=== PATIENT | female | born 1960 | race Caucasian/White ===

== ENCOUNTER 2021-04-22 16:05 | Outpatient (CLI) | payer OTHER, SELFPAY ==
--- NOTE | ~2021-04-22 | MM_ITS ---
EXAMINATION: MM screening shavon BI w kami HISTORY: Screening mammogram TECHNIQUE: Craniocaudal and mediolateral oblique 3-D tomosynthesis images were obtained and synthetic 2-D images were generated. CAD analysis was submitted and interpreted. COMPARISON: 07/23/2019, 06/05/2018, 10/12/2016 bilateral digital screening mammogram examinations BREAST PARENCHYMAL COMPOSITION: The breasts are heterogeneously dense, which may obscure small masses . FINDINGS: There is no evidence of suspicious mass, calcification, or architectural distortion to sugg est malignancy in either breast. There has been no suspicious interval change. IMPRESSION: 1. No mammographic evidence of malignancy. 2. Recommend routine screening mammography in one year. BI-RADS Category 1: Negative Reviewed, dictated and finalized at location A.
== END 2021-04-22 16:06 | disposition home or self-care (01) ==
PROVIDERS: PCP Internal Medicine; Visit Provider Obstetrics & Gynecology
DX: Z12.31 Encounter for screening mammogram for malignant neoplasm of breast (principal)
CPT/HCPCS: 77063; 77067

== ENCOUNTER 2023-01-16 07:31 | Outpatient (CLI) | payer OTHER, SELFPAY ==
--- NOTE | ~2023-01-16 | MM_ITS ---
EXAMINATION: MM screening shavon BI w kami HISTORY: Screening mammogram TECHNIQUE: Craniocaudal and mediolateral oblique 3-D tomosynthesis images were obtained and synthetic 2-D images were generated. CAD analysis was submitted and interpreted. COMPARISON: 04/22/2021, 07/23/2019, 06/05/2018 bilateral screening mammogram examinations BREAST PARENCHYMAL COMPOSITION: The breasts are heterogeneously dense, which may obscure small masses . FINDINGS: There is no evidence of suspicious mass, calcification, or architectural distortion to sugg est malignancy in either breast. There has been no suspicious interval change. IMPRESSION: 1. No mammographic evidence of malignancy. 2. Recommend routine screening mammography in one year. BI-RADS Category 1: Negative Reviewed, dictated and finalized at location A. [employer]
--- NOTE | ~2023-01-16 | DEXA_ITS ---
Bone Density Report Name: DANISH ZIMMERMAN Age: 62 Sex: Female Ethnicity: White Date of : 1960 Indication: postmenopausal; screening for osteoporosis; Referring Provider: , SANDRA William Study: Bone densitometry was performed. Exam Date: January 16, 2023 Accession number: [id number] Bone Density: Region BMD T-score Z-score Classification AP Spine(L1, L2, L3) 1.007 -0.1 1.6 Normal Femoral Neck (Left) 0.731 -1.1 0.4 Osteopenia Total Hip (Left) 0.938 0.0 1.2 Normal Femoral Neck (Right) 0.675 -1.6 -0.1 Osteopenia Total Hip (Right) 0.858 -0.7 0.5 Normal Total Hip Mean 0.898 -0.4 0.9 Normal World Health Organization criteria for BMD impression classify patients as: Normal (T-score at or above -1.0), Osteopenia (T-score between -1.0 and -2.5), or Osteoporosis (T-score at or below -2.5). 10-year Fracture Risk(1): Major Osteoporotic Fracture 8.3% Hip Fracture 0.9% Reported Risk Factors: [place] (), Neck BMD=0.675, BMI=22.3 (1) FRAX(R) Version 3.08. Fracture probability calculated for an untreated patient. Fracture probability may be lower if the patient has received treatment. Previous Exams: Region Exam Age BMD T-score BMD Change BMD Change Date g/cm2 vs Baseline vs Previous AP Spine (L1-L3) 01/16/2023 62 1.007 -0.1 -0.071 (-6.6%) -0.071 (-6.6%) 12/17/2016 56 1.078 0.5 Total Hip(Left) 01/16/2023 62 0.938 0.0 -0.025 (-2.6%) -0.025 (-2.6%) 12/17/2016 56 0.963 0.2 Total Hip(Right) 01/16/2023 62 0.858 -0.7 -0.031 (-3.4%) -0.031 (-3.4%) 12/17/2016 56 0.888 -0.4 *Denotes significance at 95% confidence level, LSC for AP Spine = 0.022 g/cm2, LSC for Total Hip = 0.027 g/cm2 Clinical Information Provided by Patient: Patient maximum height was 64.25 Menopause Age: 51 Drinks caffeinated beverages Onset of menses at age 11 Number of children 2 Impression: The patient has low bone mass, based on the Right Femoral Neck T-score. The patient has an estimated ten-year risk of hip fracture of 0.9% and an estimated ten-year risk of major fracture of 8.3%, based on the WHO FRAX algorithm. The BMD for the AP Spine (L1-L3) decreased, changing by -6.6% since the last DXA exam. The BMD for the Total Hip(Right) decreased, changing by -3.4% since the last DXA exam. Discussion: BONE DENSITY IS LOW AT ONE OR MORE SKELETAL SITES. This patient's lowest T-score is low at one or more skeletal sites. It meet
== END 2023-01-16 07:32 | disposition home or self-care (01) ==
PROVIDERS: PCP Internal Medicine; Visit Provider Internal Medicine
DX: Z12.31 Encounter for screening mammogram for malignant neoplasm of breast (principal); Z78.0 Asymptomatic menopausal state; M85.88 Other specified disorders of bone density and structure, other site
CPT/HCPCS: 77063; 77067; 77080

== ENCOUNTER 2024-04-09 16:20 | Outpatient (CLI) | payer OTHER, SELFPAY ==
--- NOTE | ~2024-04-09 | MM_ITS ---
EXAMINATION: MM screening shavon BI w kami HISTORY: Screening mammogram TECHNIQUE: Craniocaudal and mediolateral oblique 3-D tomosynthesis images were obtained and synthetic 2-D images were generated. CAD analysis was submitted and interpreted. COMPARISON: January 16, 2023, April 22, 2021 bilateral screening mammogram examinations BREAST PARENCHYMAL COMPOSITION: The breasts are heterogeneously dense, which may obscure small masses . FINDINGS: There is no evidence of suspicious mass, calcification, or architectural distortion to sugg est malignancy in either breast. There has been no suspicious interval change. IMPRESSION: 1. No mammographic evidence of malignancy. 2. Recommend routine screening mammography in one year. BI-RADS Category 1: Negative Reviewed, dictated and finalized at location A.
== END 2024-04-09 16:21 | disposition home or self-care (01) ==
PROVIDERS: PCP Internal Medicine; Visit Provider Obstetrics & Gynecology
DX: Z12.31 Encounter for screening mammogram for malignant neoplasm of breast (principal)
CPT/HCPCS: 77063; 77067

== ENCOUNTER 2025-10-22 08:24 | Outpatient (CLI) | payer MEDICARE, SELFPAY ==
--- OUTSIDE RECORDS SUMMARY | 2025-09-30 09:19 | XMS_ITS | Continuity of Care Document ---
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 Name Role Phone Yong Calloway MD Unavailable Unavailable Allergies, Adverse Reactions, Alerts Substance Reaction Status Criticality codeine Active No Information Sulfa (Sulfonamide Antibiotics) Active No Information Medications Medication Instructions Dosage Effective Dates (start - stop) Status Comments Levothyroxine Sodium 75 MCG Oral Tablet Take 1 tablet by mouth once daily - Active fluticasone propionate 50 mcg/actuation nasal spray,suspension inhale 1 spray by intranasal route every day in each nostril 50 MCG - Active Claritin 10 mg tablet take 1 tablet by o ral route every day as needed 10 MG - Active Procedures Procedure Date Pt inelig neg scrn depres FALL RISK ASSESSMENT DOC'D PRES/ABSN URINE INCON ASSESS MED LIST DOCD IN RCRD OFFICE [id number] INIT PREVENT PHYS EXAM; LIMITED TO NEW B ENEFICIARY BODY MASS INDEX DOCD SYST BP >= 140 MM HG6 IT DIAST BP >= 90 MM HG ELECTROCARDIOGRAM ECG WITH 12 LEADS INTE RP AND RPT ROUTINE VENIPUNCTURE IL CBC, INC PLATELETS AND DIFFERENTIAL COMPREHEN METABOLIC PANEL CMP LIPID PANEL RBC SED RATE, AUTOMATED THYROID STIMULATION HORMONE(TSH) 2024 Pt inelig neg scrn depres FALL RISK ASSESSMENT DOC'D PRES/ABSN URINE INCON ASSESS PREVENTATIVE-EST: 65 & OVER BODY MASS INDEX DOCD SYST BP >= 140 MM HG6 IT DIAST BP 80-89 MM HG GENERAL HEALTH PANEL LIPID PANEL RBC SED RATE, AUTOMATED ROUTINE VENIPUNCTURE IL RBC SED RATE, AUTOMATED THYROID STIMULATION HORMONE(TSH) 2023 Pt inelig neg scrn depres IMMUN ADMIN (INC PERCUTANEOUS) SINGLE, F IRST INJ Pneumococcal Conjugate Vaccine (PCV20) A OFFICE [id number] BODY MASS INDEX DOCD SYST BP >= 140 MM HG6 IT DIAST BP 80-89 MM HG ROUTINE VENIPUNCTURE IL Pt inelig neg scrn depres FALL RISK ASSESSMENT DOC'D PRES/ABSN URINE INCON ASSESS PREVENTATIVE-EST: 65 & OVER BODY MASS INDEX DOCD SYST BP >= 140 MM HG6 IT DIAST BP >= 90 MM HG ROUTINE VENIPUNCTURE IL GENERAL HEALTH PANEL LIPID PANEL RBC SED RATE, AUTOMATED OFFICE [id number] BODY MASS INDEX DOCD SYST BP >= 140 MM HG6 IT DIAST BP >= 90 MM HG RBC SED RATE, AUTOMATED THYROID STIMULATION HORMONE(TSH) 2022 ROUTINE VENIPUNCTURE IL Pt inelig neg scrn depres PREVENTATIVE-EST: 40-64 BODY MASS INDEX DOCD SYST BP >= 140 MM HG6 IT DIAST BP >= 90 MM HG GENERAL HEALTH PANEL LIPID PANEL ROUTINE VENIPUNCTURE RBC SED RATE, AUTOMATED Pt inelig neg scrn depres OFFICE [id number] BODY MASS INDEX DOCD SYST BP GE 130 - 139MM HG DIAST BP >= 90 MM HG RBC SED RATE, AUTOMATED THYROID STIMULATION HORMONE(TSH) 2021 ROUTINE VENIPUNCTURE FREE T4 (FT4) OFFICE [id number] BODY MASS INDEX DOCD SYST BP >= 140 MM HG6 IT DIAST BP >= 90 MM HG RBC SED RATE, AUTOMATED ROUTINE VENIPUNCTURE OFFICE [id number] BODY MASS INDEX DOCD SYST BP >= 140 MM HG6 IT DIAST BP >= 90 MM HG RBC SED RATE, AUTOMATED THYROID STIMULATION HORMONE(TSH) 2020 ROUTINE VENIPUNCTURE FREE T4 (FT4) OFFICE [id number] GENERAL HEALTH PANEL RBC SED RATE, AUTOMATED COVID-19, Amplified Probe Technique URINALYSIS, DIPSTICK (UA) - Office Lab O ROUTINE VENIPUNCTURE FREE T4 (FT4) PREVENTATIVE-EST: 40-64 BODY MASS INDEX DOCD SYST BP LT 130 MM HG DIAST BP < 80 MM HG Pt inelig neg scrn depres FALL RISK ASSESSMENT DOC'D PRES/ABSN URINE INCON ASSESS FREE T4 (FT4) GENERAL HEALTH PANEL LIPID PANEL ROUTINE VENIPUNCTURE IMMUN ADMIN (INC PERCUTANEOUS) SINGLE, F IRST INJ FLU VAC NO PRSV 4 LAURA, 0.5mL DOSAGE Pt inelig neg scrn depres PREVENTATIVE-EST: 4064 BODY MASS INDEX DOCD SYST BP GE 130 - 139MM HG DIAST BP 80-89 MM HG GENERAL HEALTH PANEL LIPID PANEL ROUTINE VENIPUNCTURE Pt inelig neg scrn depres OFFICE [id number] BODY MASS INDEX DOCD SYST BP >= 140 MM HG6 IT DIAST BP >= 90 MM HG THYROID STIMULATION HORMONE(TSH) 2019 ROUTINE VENIPUNCTURE IMMUN ADMIN (INC PERCUTANEOUS) SINGLE, F IRST INJ FLU VAC NO PRSV 4 LAURA, 0.5mL DOSAGE Pt inelig neg scrn depres PREVENTATIVE-EST: 40-64 BODY MASS INDEX DOCD SYST BP >= 140 MM HG6 IT DIAST BP >= 90 MM HG GENERAL HEALTH PANEL LIPID PANEL ROUTINE VENIPUNCTURE Advance Directives Directive Yes / No Effective Date File Name Other Directive No N/A N/A WARNING:The information contained in this section is historical and is provided for information only and does not constitute a legal document or any assurance that the information is still accurate. Please verify the information with the srinivasan of the legal document before using it for clinical purposes. Encounters Encounter Description Practice Location Reason(s) For Visit Diagnoses Date Provider Providers Copied on Encounter OFFICE [id number] PANDED [facility], [address], [place], [place], [address] , [place] tel: [phone] [facility] [place] preventive (chief complaint)PX (chief complaint) Encntr for general adult medical exam w/o abnormal findingsPolymyalg ia rheumaticaHypothy roidism, unspecified typeWhite coat syndrome without hypertension [address] [place]. [address] [place] [address], [id number] , [place]. tel: [phone] Referring Provider: [place], [address] . tel:[phone] [facility], [address], [place], [place], [address] , [place] tel: [phone] [facility] Essential (primary) hypertensionHyper thyroidismPolymya lgia rheumatica [address] [place]. [place], [address] , [place]. tel: [phone] Referring Provider: [place], [address] . tel:[phone] [facility], [address], [place], [place], [address] , [place] tel: [phone] [facility] No Information 5 Shaye Brandon. [address] [facility], [place] [address], [place], [place], [address] , [place]. tel: [phone] Referring Provider: [place], [address] . tel:[phone] [facility], [address], [place], [place], [address] , [place] tel: [phone] [facility] No Information 5 [place]. [address] [place], [address] , [place]. tel: [phone] PREVENTATIVE -EST: 65 & OVER [facility], [address], [place], [place], [address] , tel: [phone] [facility] PX (chief complaint) Encounter for annual general medical examination without abnormal findings in adultHypothyroidi sm, unspecified type 4 [place]. [address] [place], [address] , [place]. tel: [phone] Referring Provider: Yong Calloway, [address] [place], [address] . tel:[phone] [facility], [address], [place], [place], [address] , [place] tel: [phone] [facility] No Information 4 Shaye Vasquez [address] [place] [address], [id number] , [place]. tel: [phone] Referring Provider: [place], [address] . tel:[phone] [facility], [address], [place], [place], [address] , [place] tel: [phone] [facility] Essential (primary) hypertensionHyper thyroidismPolymya lgia rheumaticaEncount er for annual general medical examination without abnormal findings in adult Jul-3 4 [place]. [address] [place], [address] , [place]. tel: [phone] Referring Provider: [place], [address] . tel:[phone] [facility], [address], [place], [place], [address] , tel: [phone] [facility] No Information 4 Shaye Vasquez [address], [address] , . tel: [phone] Referring Provider: [place], [address] . tel:[phone] OFFICE BQVHA-JXS-US PANDED [facility], [address], [place], [place], [address] , [place] tel: [phone] [facility] chronic conditons (chief complaint) Polymyalgia rheumaticaHypothy roidism, unspecified typeWhite coat syndrome without hypertensionBody mass index [BMI] 22.0-22.9, adult Apr- 4 [place]. [place], [address] , [place]. tel: [phone] Referring Provider: [place], [address] . tel:[phone] PREVENTATIVE -EST: 65 & OVER [facility], [address], [place], [place], [address] , [place] tel: [phone] [facility] px (chief complaint) Encounter for general adult medical examination without abnormal findingsPolymyalg ia rheumaticaHypothy roidism, unspecified typeColon cancer screening Jul- 3 [place]. [place], [address] , [place]. tel: [phone] Referring Provider: Yong Calloway, [address] [place], [address] . tel:[phone] [facility], [address], [place], [place], [address] , [place] tel: [phone] [facility] HyperthyroidismPo lymyalgia rheumaticaEssenti al (primary) hypertensionScree deepika for lipid disorders Jul-2 3 [place]. [place], [address] , [place]. tel: [phone] Referring Provider: [place], [address] . tel:[phone] [facility], [address], [place], [place], [address] , tel: [phone] [facility] No Information Sep-2 3 Shaye Brandon. [address], [id number] , . tel: [phone] Referring Provider: [place], [address] . tel:[phone] OFFICE BUKUA-XBL-VJ TAILED [facility], [address], [place], [place], [address] , tel: [phone] [facility] chronic conditonss (chief complaint) Polymyalgia rheumaticaHyperth yroidismBody mass index [BMI] 21.0-21.9, adultSensorineura l hearing loss, bilateralSkin lesionOsteopenia, unspecified location Jan-2 3 [place]. [address] [place], [address] , [place]. tel: [phone] Referring Provider: [place], [address] . tel:[phone] [facility], [address], [place], [place], [address] , [place] tel: [phone] [facility] No Information 3 Shaye Brandon. [address], [id number] , . tel: [phone] Referring Provider: [place], [address] . tel:[phone] [facility] [place], [address], [place], [place], [address] , [place] tel: [phone] [facility] Polymyalgia rheumaticaHyperth yroidism Jan-2 3 [place]. [address] [place], [address] , [place]. tel: [phone] Referring Provider: [place], [address] . tel:[phone] PREVENTATIVE -EST: 40-64 [facility], [address], [place], [place], [address] , tel: [phone] [facility] px (chief complaint) Encounter for general adult medical examination without abnormal findingsPMR (polymyalgia rheumatica)Hypoth yroidism, unspecified typeBody mass index [BMI] 21.0-21.9, adultAsymptomatic menopausal state 2 [place]. [place], [address] , . tel: [phone] Referring Provider: [place], [address] . tel:[phone] [facility], [address], [place], [place], [address] , tel: [phone] [facility] Essential hypertensionHypot hyroidism, unspecified typeScreening for lipoid disordersPMR (polymyalgia rheumatica) 2 [place]. [place], [address] , . tel: [phone] Referring Provider: [place], [address] . tel:[phone] OFFICE [id number]-RXU-WU [facility], [address], [place], [place], [address] , tel: [phone] [facility] chronic conditions (chief complaint) Body mass index [BMI] 22.0-22.9, adultPMR (polymyalgia rheumatica)Hypoth yroidism, unspecified type 2 [place]. [place], [address] , [place]. tel: [phone] Referring Provider: [place], [address] . tel:[phone] OFFICE QIXRD-EFH-ZV [facility], [address], [place], [place], [address] , tel: [phone] [facility] pmr (chief complaint) Body mass index [BMI] 21.0-21.9, adultPMR (polymyalgia rheumatica) [address] [place] [place], [address] , [place]. tel: [phone] Referring Provider: Yong Calloway, [place], [address] . [phone] [facility], [address], [place], [place], [address] , tel: [phone] [place] Swelling of joint of right knee 1 [place]. [place], [address] , [place]. tel: [phone] OFFICE BZUJC-DCC-AF TAILED [facility], [address], [place], [place], [address] , [place] tel: [phone] [facility] generalized pain (chief complaint) Body mass index [BMI] 22.0-22.9, adultHypothyroidi sm, unspecified typeGeneralized painSwelling of knee joint, right 1 [place]. [place], [address] , [place]. tel: [phone] Referring Provider: [place], [address] . tel:[phone] OFFICE GORTK-BXD-OV PANDED [facility], [address], [place], [place], [address] , tel: [phone] [facility] acute problem (chief complaint) Malaise [address] [place] [place], [address] , [place]. tel: [phone] Referring Provider: [place], [address] . [phone] [employer] [facility] [facility], [address], [place], [place], [address] , tel: [phone] [facility] Fatigue, unspecified typeTemperature elevated 1 [place]. [place], [address] , [place]. tel: [phone] PREVENTATIVE -EST: 40-64 [facility], [address], [place], [place], [address] , tel: [phone] [place] px (chief complaint) Encounter for general adult medical examination without abnormal findingsHypothyro idism, unspecified typeBody mass index (BMI) 21.0-21.9, adult Sep-0 1 [place]. [place], [address] , . tel: [phone] Referring Provider: [place], [address] . tel:[phone] [facility], [address], [place], [place], [address] , tel: [phone] [place] Elevated blood pressure readingElevated TSHEssential hypertensionScree deepika for lipoid disordersHypothyr oidism, unspecified type Sep-0 1 [place] [place], [address] , . tel: [phone] Referring Provider: [place], [address] . tel:[phone] [facility], [address], [place], [place], [address] , tel: [phone] [facility] No Information Sep-0 1 [place] [place], [address] , . tel: [phone] PREVENTATIVE -EST: 40-64 [facility], [address], [place], [place], [address] , tel: [phone] [place] px (chief complaint) Encounter for general adult medical examination without abnormal findingsHypothyro idism, unspecified typeWhite coat syndrome without diagnosis of hypertension 0 [place]. [place], [address] , . tel: [phone] Referring Provider: [place], [address] . tel:[phone] OFFICE MELLR-ETU-QQ PANDED [facility], [address], [place], [place], [address] , tel: [phone] [place] Thyroid disorder f/u (chief complaint) Hypothyroidism, unspecified typeWhite coat syndrome without diagnosis of hypertension 0 [place]. [place], [address] , . tel: [phone] Referring Provider: Yong Calloway, [place], [address] . tel:[phone] [facility], [address], [place], [place], [address] , tel: [phone] [place] No Information 9 [place]. [place], [address] , . tel: [phone] Referring Provider: [place], [address] . tel:[phone] PREVENTATIVE -EST: 40-64 [facility], [address], [place], [place], [address] , tel: [phone] [facility] PX (chief complaint) Encounter for general adult medical examination without abnormal findingsHypothyro idism, unspecified typeWhite coat syndrome without diagnosis of hypertension 9 [place] [place], [address] , . tel: [phone] Referring Provider: [place], [address] . tel:[phone] [facility], [address], [place], [place], [address] , tel: [phone] [place] Essential hypertensionHypot hyroidism, unspecified typeScreening for lipoid disordersAdult general medical exam 9 [place] [place], [address] , . tel: [phone] Referring Provider: [place], [address] . tel:[phone] [facility], [address], [place], [place], [address] , tel: [phone] [place] Hypertension, unspecified typeLong term use of drug 8 [place]. [place], [address] , . tel: [phone] Referring Provider: Yong Calloway, [address] [place], [address] . tel:[phone] [facility], [address], [place], [place], [address] , tel: [phone] [place] Encounter for general adult medical examination without abnormal findingsHypothyro idism, unspecified typeElevated blood pressure readingElevated TSH 8 [place] [place], [address] , . tel: [phone] Referring Provider: Yong Calloway, [place], [address] . tel:[phone] [facility], [address], [place], [place], [address] , tel: [phone] [place] Pleurodynia [address] [place]. [place], [address] , . tel: [phone] [facility], [address], [place], [place], [address] , tel: [phone] [place] Chest pain, unspecified type 7 [place] [place], [address] , . tel: [phone] [facility], [address], [place], [place], [address] , tel: [phone] [place] Chest pain, unspecified type 3 0 7 [place] [place], [address] , . tel: [phone] [facility], [address], [place], [place], [address] , tel: [phone] [place] Encounter for general adult medical examination without abnormal findingsHypothyro idism, unspecified typeChest pain, unspecified typeOsteopenia 6 [place]. [address] [place], [address] , . [phone] Referring Provider: Yong Calloway, [address] [place], [address] . tel:[phone] Family History Family Member Type Diagnosis Age At Onset Father Problem (finding) Cardiovascular disease Nephew Problem (finding) hypertension Mother Problem (finding) Cancer, brain Immunizations Vaccine Date Status Comments Pneumococcal conjugate PCV20 administered Source: New Immunization Record Flublok, quadrivalent, preservative free, 0.5mL dosage refused Source: New Immuniza tion Record Pneumococcal conjugate PCV20 refused Source: New Immunization Record J&J COVID/Adenovirus Vaccine [id number] viral particles/0.5mL administered Note: [facility] ; Source: Source Unspecified Fluzone Quad, preservative free, split virus, 0.5mL dosage administered Source: New Immuniza tion Record Fluzone Quad, preservative free, split virus, 0.5mL dosage administered Source: New Immuniza tion Record Influenza, injectable, quadrivalent, preservative free, 3 yrs or older refused Source: New Immuniz ation Record Payers Payer name Insurance type Covered democrat ID Authoriza tion(s) [place]IC[place] [id number] [place] [id number] [employer] [place] CI [id number] [facility] [place] CI [id number] [facility] [place] CI [id number] [facility] CI [id number] [facility] [place] [id number] [place] [id number] [place] [id number] Social History Type Description Quantity Date Captured Comments Alcohol Use Details beer & wine Caffeine Use Details Unknown Tobacco Use Status Current non-smoker Smoking Status Never smoker Non-Smoking Tobacco Use Details : No Details Available : No Details Available Sex Female Vital Signs Date / Time: Height Weight BMI Pulse Rate Blood Pressure Temperature Respiratory Rate Body Surface Area Head Circumference Head Circ. Percentile Wt./Tim. Percentile BMI percentile Pulse Ox Inhaled Ox 3:39 PM 64.00 in 60.600 kg (133.60 lbs) 22.9 3 kg/m eter (2) 82 /min 175/92 mm[Hg] Chief Complaint And Reason For Visit From encounter dated '09/30/2025 15:19'. Medicare preventive (chief complaint). Description: A Health Risk Assessment has been performed andreviewed. Relevant history is positive for alcohol use. PX (chief complaint). Description: Chronic conditionspmr-- in remissionhypothyroidism-- controlled with medbp is ok at homedietexercise-- regularimmunizations-- recommended flu shotscreenings--- mammogram in september,d with colonosocpymood- oksleep-- okmemory-- fine Reason For Referral Reason For Referral No Information Plan Of Treatment Date Type Action Status Goal Dietary manageme nt education, guidance, and counseling completed Goal Dietary manageme nt education, guidance, and counseling completed Goal Dietary manageme nt education, guidance, and counseling completed Goal Dietary manageme nt education, guidance, and counseling completed Goal Dietary manageme nt education, guidance, and counseling completed Goal Dietary manageme nt education, guidance, and counseling completed Goal Dietary manageme nt education, guidance, and counseling completed Referral Ordered: EKG (ELECTROCARDIOGRAM) ordered Referral Ordered: [facility] -Gastroenterology (related to Encounter for annual general medical examination without abnormal findings in adult) ordered Referral Referred To: [facility] Ordered: Referrals: Gastroenterology. [facility]. Evaluation/diagnostic/treatment - Level 3 ordered Referral Ordered: Dewey Mujica MD -Gastroenterology (related to Colon cancer screening) ordered Referral Referred To: Dewey Mujica MD [address] [place], [phone] Ordered: Referrals: Gastroenterology. Dewey Mujica MD. Evaluation/diagnostic/treatment - Level 3 ordered Referral Ordered: Matthew Ureña MD -Otolaryngology (related to Sensorineural hearing loss, bilateral) ordered Referral Ordered: MD Quynh Sifuentes -Dermatology (related to Skin lesion) ordered Referral Referred To: MD Quynh Sifuentes [address] [place], [phone] Ordered: Referrals: Dermatology. MD Quynh Sifuentes. Evaluation/diagnostic/treatment - Level 3 ordered Referral Referred To: Matthew Ureña MD [address] [place], [phone] Ordered: Referrals: Otolaryngology. Matthew Ureña MD. Evaluation/diagnostic/treatment - Level 3 ordered Referral Ordered: DEXA of spine and hip ordered Referral Referred To: [facility] Ordered: Referrals: Orthopedic Surgery. [facility]. Evaluation/diagnostic/treatment - Level 3 ordered Referral Ordered: Marina Kendrick MD -Rheumatology (related to Generalized pain) ordered Referral Referred To: [facility] Rhe[facility]ology Dept Ordered: Referrals: Rheumatology. [facility]. Evaluation/diagnostic/treatment - Level 3 ordered Referral [place]: [place] [address] [place], [phone] Ordered: Referrals: Rheumatology. Marina Kendrick MD. Evaluation/diagnostic/treatment - Level 3 ordered Referral Referred To: [address] [place], [phone] Ordered: X-ray right knee, AP/lateral ordered Appointment Milena Nelson BOOKED Appointment Milena Nelson BOOKED History Of Present Illness Encounter Date Complaint History Of Prese nt Illness PX Chronic conditio nspmr-- in remissionhypothyroidism-- controlled with medbp is ok at homedietexercise-- regularimmunizations-- recommended flu shotscreenings--- mammogram in november, utd with colonosocpymood- oksleep-- okmemory-- fine Medicare preventive A Health Ris k Assessment has been performed and reviewed. Relevant history is positive for alcohol use. PX Chronic conditio nselevated bp-- fine at homehypothyroidism-- controlled on meddiet-- tryign to eat healthyexercise-- regularimmunizations-- declined fllu shotscreenings-- needs colonoscopymood-- anxious at timessleep-- okmemory-- fine chronic conditons hypothyrodism- - controlled on medpmr-- doing well off of medwhite coat-- good bp at home px Chronic conditio nshypothyrodism-- controlled on medpmr-- doing finediet-- goodexercise-- regularimmunizations-- recommended flu and prevnarscreenings-- getting colonoscopy resulstmood--okmemory-- fine chronic conditonss pmr-- doing f ine off medhypothyrodism-- controlled on medosteopenia-- no recent fractures px Chronic conditio nspmr-- doing wellhypothyrodsm-- controlled on meddiet-- healthyexercise-- regularimmunizations---recommend flu and covid boosterscreenings-- needs dexa, mammogram and fit testmood--ok chronic conditions pmr-- doing m uch betterhypothyroidsm-- controlled on med pmr The problem is i mproving. It occurs persistently. Context includes night-time. Relieving factors include Rx Meds. Associated symptoms include fatigue and nocturnal pain. Additional information: prednisone is helping generalized pain pain and malais e-- steroids helped, not sleeping as welldecreased flexibilitymeloxicam and tylenol do helpwas diagnosed with fibromyalgia i npasthypithyrodisme-- energty is low acute problem ; occur intermit tently fever up and downachy especially in jointsno urinary problemstrying to drink waterno coughno sob px chronic conditio nshypothyrdism-- controlled on meddiet-- alrightexercise-- regularscreening--utdimmunizations--utdmood-- fine px chronic conditio nseleveted blood pressure-- pressure is fine at home, she just nervoushypothyroduism-- on levothyroxine, energy level oksleep is alrightdiet-- eating okexercise-- trying to regularlyscreening-- needs mammogramimmunizations-- flu shot todaymood-- ok per pt Thyroid disorder f/u white cost syndrome-- perfect at home, machine has been checked , no symptomshypothyrodism-- doing well, no complaints PX hypothyroduism-- tsh normal, no energy problems, taking replacementwhitecoat htn---- ok at home, home monitor and my readings in office are the same, got dizzy on lisinoprilscreenigs-- needs mammogram, needs colonosocpy, utd with dexaneeds flu and shingrixregular exercisehealthy dietmood very goodsleep is ok overall Functional Status Date Functional Assessmen t No Information Instructions Date Instruction Additional Infor una recommend annual flu vaccineutd with screeningshealthy diet and exercisefollow up in 1 year Related to Encntr for general adult medical exam w/o abnormal findings will monitor esr Related to Poly myalgia rheumatica continue levothryxinemonitor tsh Related to Hypothyroidism, unspecified type continue to monitor at home Rela thee to White coat syndrome without hypertension Medication management recommend annual flu shotneeds colonoscopyhealthy diet and exercisefollow up in 1 year Related to Encounter for annual general medical examination without abnormal findings in adult continue medsmonitor tsh Related to Hypothyroidism, unspecified type Medication management continue to monitorcheck esr Rel ated to Polymyalgia rheumatica continue medscheck tsh Related t o Hypothyroidism, unspecified type continue to monitor at home Rela thee to White coat syndrome without hypertension Dietary management e ducation, guidance, and counseling Related to Body mass index (BMI) 22.0-22.9, adult Medication management recommend annual flu shot and pneumonia vaccineannual mammogramwill get colonoscopy resultshealthy diet and exercisefollow up in 6 months Related to Encounter for general adult medical examination without abnormal findings continue levothyroxine Related t o Hypothyroidism, unspecified type will continue to monitor Related to Polymyalgia rheumatica Medication management continue to exercise take calcium and vitamin d Related to Osteopenia, unspecified location continue levothyroxine Related t o Hyperthyroidism will send to ent Related to Sens orineural hearing loss, bilateral send to derm Related to Skin lesion call if symptoms return Related to Polymyalgia rheumatica Dietary management e ducation, guidance, and counseling Related to Body mass index (BMI) 21.0-21.9, adult Medication management recommend annual flu shot and covid boosterneeds dexa and mammogramhealthy diet and exercisefollow up in 6 months Related to Encounter for general adult medical examination without abnormal findings continue levothyroxine Related t o Hypothyroidism, unspecified type go to prednsione every other day Related to PMR (polymyalgia rheumatica) Dietary management e ducation, guidance, and counseling Related to Body mass index (BMI) 21.0-21.9, adult Medication management will check esrcontin ue prednisonewill call with labs results Related to PMR (polymyalgia rheumatica) continue levothyroxine Related t o Hypothyroidism, unspecified type Dietary management e ducation, guidance, and counseling Related to Body mass index (BMI) 22.0-22.9, adult Medication management will recheck esrcontinue prednis one Related to PMR (polymyalgia rheumatica) Medication management Dietary management e ducation, guidance, and counseling Related to Body mass index (BMI) 21.0-21.9, adult will start amitrypll inewill send to rheum Related to Generalized pain will get xraycontinue meloxicam Related to Swelling of knee joint, right check tsh Related to Hypot hyroidism, unspecified type Dietary management e ducation, guidance, and counseling Related to Body mass index (BMI) 22.0-22.9, adult Medication management unclear etiologywill check labs and go from there Related to Malaise Medication management annual flu shotwill do FIT test for colon cancer screeninghealthy diet and exercisefollow up in 1 year Related to Encounter for general adult medical examination without abnormal findings continue meds Related to Hypot hyroidism, unspecified type Medication management Dietary management e ducation, guidance, and counseling Related to Body mass index (BMI) 21.0-21.9, adult annual flu shotneeds mammogramcontinue healthy diet and exercisefollow up in 6 months Related to Encounter for general adult medical examination without abnormal findings checking tshcontinue levothyxrox ine Related to Hypothyroidism, unspecified type low salt diet contin ue to monitor bp athome Related to White coat syndrome without diagnosis of hypertension Medication management monitor blood pressu re at homecall if above 140/80 Related to White coat syndrome without diagnosis of hypertension continue replacemementcheck tsh Related to Hypothyroidism, unspecified type Medication management annual flu shotneeds shingrixneeds mammogramcontinue healthy diet and exercisefollow up in 6 months Related to Encounter for general adult medical examination without abnormal findings monitor bp at home Related to Wh ite coat syndrome without diagnosis of hypertension on replacementtsh normalcontinue meds Related to Hypothyroidism, unspecified type Medication management Assessments Type Assessment Date assessment Encntr for general adult medical exam w/o abnormal findings assessment Polymyalgia rheumatica assessment Hypothyroidism, unspecified type assessment White coat syndrome without hype rtension Mental Status Date Cognitive Assessment Orientation - [place] ed to time, place, person, situation. Patient Care Teams Name Effective Dates (start - stop) Status Members No Information
--- NOTE | ~2025-10-22 | MM_ITS ---
EXAMINATION: MM screening shavon BI w kami HISTORY: Screening. TECHNIQUE: Craniocaudal and mediolateral oblique 3-D tomosynthesis images were obtained and synthetic 2-D images were generated. CAD analysis was submitted and interpreted. COMPARISON: 2023, , and 2020. BREAST PARENCHYMAL COMPOSITION: Dense: The breast tissue is heterogeneously dense, which may obscure small masses. FINDINGS: No suspicious masses are seen. There are no suspicious calcifications. No unexplained architectural distortion is seen. There are no skin or nipple abnormalities identified. There is no adenopathy seen on the images submitted. IMPRESSION: No mammographic evidence to suggest malignancy is seen. The patient may return to screening mammography as per ACR guidelines. BI-RADS: 1 - Negative. Reviewed, dictated and finalized at location B. PREPARATION TEACHER
--- OUTSIDE RECORDS SUMMARY | 2025-10-22 08:34 | XMS_ITS | Encounter Summary ---
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 Historical Provider [facility] Final Result documented in this encounter Visit Diagnoses Not on filedocumented in this encounter Care Teams Jewel Inserter Relationship Specialty Start Date End Date Yong Calloway MD PCP - General Internal Medicine 11/02/21 documented as of this encounter
--- OUTSIDE RECORDS SUMMARY | 2025-10-22 08:34 | XMS_ITS | Clinical Summary ---
Author Organization [facility] Address [facility] [place] [address] Care Team Providers Care Employment Program Representative Name Role Phone Yong Calloway MD Primary Care Provider [phone] Allergies Active Allergy Reactions Criticality Noted Date Comments Codeine Itching Low 04/20/2023 Sulfa (Sulfonamide Antibiotics) Diarrhea Low 03/28 Medications levothyroxine (SYNTHROID) 75 mcg tablet Take 1 tablet (75 mcg total) by mouth daily 03/29/2023 Active Active Problems Problem Noted Date Diagnosed Date Tinnitus of both ears 04/20/2023 Mixed conductive and sensori neural hearing loss of right ear with restricted hearing of left ear 04/20/2023 Dysfunction of right eustachian tube 04/20/2023 Surgical History Surgery Date Site/Laterality Comments TUBAL LIGATION KNEE ARTHROSCOPY Medical History Medical History Date Comments Autoimmune disease Thyroid disease Family History Medical History Relation Name Comments No Known Problems Father No Known Problems Mother Relation Name Status Comments Father Mother Social History Tobacco Use Types Packs/Day Years Used Date Smoking Tobacco: Never Smokeless Tobacco: Never Tobacco Cessation:Counseling Given: Not Answered Personal Safety Answer Date Recorded Getting School Help Needed Not on file 01/26 Comments Unknown Sex and Gender Information Value Date Recorded Sex Assigned at Not on file Legal Sex Female 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 Gender Identity Not on file Sexual Orientation Not on file Last Filed Vital Signs Vital Sign Reading Time Taken Comments Blood Pressure - - Pulse - - Temperature - - Respiratory Rate 18 04/20/2023 3:46 PM CDT Oxygen Saturation - - Inhaled Oxygen Concentration - - Weight 57.6 kg (127 lb) 04/20/2023 3:46 PM CDT Height 162.6 cm (5' 4) 04/20/2023 3:46 PM CDT Body Mass Index 21.8 04/20/2023 3:46 PM CDT Plan of Treatment Health Maintenance Due Date Last Done Comments Breast Cancer Screening-Mammogram 1960 Colon Cancer Screening-Colonoscopy 1960 Depression Screening 1958 Fall Risk Assessment 1960 Hepatitis C Screening 1960 Osteoporosis Screening-Bone Density Scan 1958 DTaP/Tdap/Td Vaccine (1 - Tdap) 1969 Hepatitis B Screening 1976 Pneumococcal vaccine 65+ (1 of 1 - PCV) 2008 Zoster Vaccine (1 of 2) 2008 Well Visit 65+ 2023 Covid-19 Vaccine (2 - season) 07/28/202503/2021 Influenza Vaccine (#1) 2025 09/07/2020, [address] [place] [address] [place] [address] Care Teams Employment Program Representative Relationship Specialty Start Date End Date Nigerian, Yong Duarte MD PCP - General Internal Medicine 11/02/21
--- OUTSIDE RECORDS SUMMARY | 2025-10-22 08:34 | XMS_ITS | Encounter Summary ---
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 Historical Provider [facility] Final Result documented in this encounter Visit Diagnoses Not on filedocumented in this encounter Care Teams Banquet Prep Cook Relationship Specialty Start Date End Date Yong Calloway MD PCP - General Internal Medicine 11/02/21 documented as of this encounter
--- OUTSIDE RECORDS SUMMARY | 2025-10-22 08:34 | XMS_ITS | Encounter Summary ---
Author Organization [facility] Facility Care Team Providers Care Treasury Director Name Role Phone Yong Calloway MD Primary Care Provider [phone] Encounter Details Date Type Department Care Team (Latest Contact Info) Description 05/05/2017 Orders Only [facility] CLINCONV ProviderChiqui MD [address] [place] [address] [phone] Social History Tobacco Use Types Packs/Day Years Used Date Smoking Tobacco: Never Assessed Comments Unknown Sex and Gender Information Value Date Recorded Sex Assigned at Not on file Legal Sex Female 9:10 PM KAIAKO KOHANGA REO Gender Identity Not on file Sexual Orientation Not on file documented as of this encounter Plan of Treatment Not on file documented as of this encounter Procedures Procedure Name Priority Date/Time Associated Diagnosis Comments CARDIOLOGY REPORT 05/04/2017 12: 00 AM CDT documented in this encounter Results * CARDIOLOGY REPORT (05/04/2017 12:00 AM CDT) Anatomical Region Laterality Modality Other Narrative 05/04/2017 12:00 AM CDT Ordered by an unspecified provider. Historical Provider [facility] Final Result documented in this encounter Visit Diagnoses Not on filedocumented in this encounter Care Teams Treasury Director Relationship Specialty Start Date End Date Yong Calloway MD PCP - General Internal Medicine 11/02/21 documented as of this encounter
--- OUTSIDE RECORDS SUMMARY | 2025-10-22 08:34 | XMS_ITS | Clinical Summary ---
Author Organization [facility] Address [facility] [place] [address] Care Team Providers Care Corrosion Control Engineer Name Role Phone Yong Calloway MD Primary Care Provider [phone] Social History Tobacco Use Types Packs/Day Years Used Date Smoking Tobacco: Never Assessed Comments Unknown Sex and Gender Information Value Date Recorded Sex Assigned at Not on file Legal Sex Female 1:12 PM TAX ASSOCIATE Gender Identity Not on file Sexual Orientation Not on file Plan of Treatment Health Maintenance Due Date Last Done Comments Colorectal Cancer Screening Colonoscopy (10 Years) 1958 Hepatitis C 1976 DTaP, Tdap and Td Vaccines ( 1 - Tdap) 1977 Mammogram Screening 1998 Pneumococcal Vaccine: 50+ Years (1 of 1 - PCV) 2008 Zoster Vaccines (1 of 2) 2008 Dexa Scan (General) 2023 PHQ-2 (Physician [place]) 11/27/2024 COVID-19 Vaccine (2 - 2024-2 6 season) 2025 01/29/2021 Influenza Adult (#1) 2025 09/07/2020, 09/18/2019 RSV Immunization or 60+ Years (1 - 1-dose 75+ series) 2033 Hepatitis A Vaccines Aged Out No long er eligible based on patient's age to complete this topic Meningococcal B Vaccine Aged Out No l onger eligible based on patient's age to complete this topic Meningococcal Vaccine Aged Out No isabela becca eligible based on patient's age to complete this topic RSV Immunizations Under 20 Months Aged Out No longer eligible b ased on patient's age to complete this topic Insurance [employer] [place] Care Teams Corrosion Control Engineer Relationship Specialty Start Date End Date Yong Calloway MD [address] [place] [address] PCP - General INTERNAL MEDICINE 01/05/24
--- OUTSIDE RECORDS SUMMARY | 2025-10-22 08:34 | XMS_ITS | Encounter Summary ---
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 Historical Provider [facility] Final Result documented in this encounter Visit Diagnoses Not on filedocumented in this encounter Care Teams Wire Bound Box Machine Operator Relationship Specialty Start Date End Date Yong Calloway MD PCP - General Internal Medicine 11/02/21 documented as of this encounter
--- OUTSIDE RECORDS SUMMARY | 2025-10-22 08:34 | XMS_ITS | Clinical Summary ---
Author Organization [facility] Address [address], [address] [address] Phone Care Team Providers Care Knife Sharpener Name Role Phone Yong Calloway MD Primary Care Provider [phone] Allergies Active Allergy Reactions Criticality Noted Date Comments Codeine Itching 01/30/2025 Sulfa Antibiotics Other (see Comments) 01/31/20 25 Diarrhea Medications levothyroxine (SYNTHROID) 75 MCG Tablet Take 75 mcg by mouth daily. Active Active Problems No known active problems Family History Medical History Relation Name Comments Heart Attack Father Cancer Mother breast Relation Name Status Comments Father Mother Social History Tobacco Use Types Packs/Day Years Used Date Smoking Tobacco: Former Cigarettes Smokeless Tobacco: Never Tobacco Cessation:Counseling Given: Not Answered Alcohol Use Standard Drinks/Week Comments Yes 1 (1 standard drink = 0.6 oz pur e alcohol) Comments Unknown Sex and Gender Information Value Date Recorded Sex Assigned at Not on file Legal Sex Female 10:56 AM COLLECTOR OF PORT Gender Identity Not on file Sexual Orientation Not on file Last Filed Vital Signs Vital Sign Reading Time Taken Comments Blood Pressure 151/70 02/11/2025 12:42 PM CDT Pulse 64 02/11/2025 12:42 PM CDT Temperature 37 C (98.6 F) 02/11/2025 12:42 PM CDT Respiratory Rate 14 02/11/2025 12:42 PM CDT Oxygen Saturation 100% 02/11/2025 12:42 PM CDT Inhaled Oxygen Concentration - - Weight 61.2 kg (135 lb) 01/30/2025 2:10 PM COLLECTOR OF PORT Height 162.6 cm (5' 4) 01/30/2025 2:10 PM COLLECTOR OF PORT Body Mass Index 23.17 01/30/2025 2:10 PM COLLECTOR OF PORT Plan of Treatment Health Maintenance Due Date Last Done Comments DEXA Bone Density 1960 Hepatitis C Virus (HCV) Screening 1960 Mammogram 1960 TdaP Immunization 1958 Cologuard 2003 Immunochemical Fecal Occult Blood 2003 Zoster Immunization (1 of 2) 2008 Medicare Initial AWV [id number] 07/27/2009 Influenza Immunization (#1) 07/28/202508/27, 09/18/2019 SARS-COV-2 Immunization ( season) 2025 01/29/2021 Respiratory Syncytial Virus (RSV) Immunization (Adult) (1 - 1-dose 75+ series) 2033 Colonoscopy 02/11/2035 02/11/2025, 02/11/2025 Colorectal Cancer Screening 02/11/2035 Pneumococcal Immunization (5 0+ years) Completed 03/12/2024 Hepatitis B Immunization Aged Out No longer eligible based on patient's age to complete this topic Human Papillomavirus (HPV) Immunization Aged Out No longer eligible b ased on patient's age to complete this topic Meningococcal Immunization (ACWY) Aged Out No longer eligible b ased on patient's age to complete this topic Rotavirus Immunization Aged Out No lo nger eligible based on patient's age to complete this topic Procedures Procedure Name Priority Date/Time Associated Diagnosis Comments GI IMAGING - COLONOSCOPY Routine 025 10:35 AM CDT from Last 3 Months or Most Recently Relevant to Health Maintenance Results * GI IMAGING - COLONOSCOPY (02/11/2025 10:35 AM CDT) us Won Ed Cifuentes MD IMG DIAGNOSTIC ORDERABLES Final Result from Last 3 Months or Most Recently Relevant to Health Maintenance Insurance MEDICARE [facility] Care Teams Knife Sharpener Relationship Specialty Start Date End Date Yong Calloway MD [address] [place] [address] PCP - General Internal Medicine 12/23/24
== END 2025-10-22 08:25 | disposition home or self-care (01) ==
LOC: ANHFOHIMG 08:27
PROVIDERS: PCP Internal Medicine; Visit Provider Internal Medicine
DX: Z12.31 Encounter for screening mammogram for malignant neoplasm of breast (principal)
CPT/HCPCS: 77063; 77067